=== PATIENT | male | born 1995 | race Caucasian/White ===

== ENCOUNTER 2019-09-18 17:54 | Emergency (ER) | payer OTHER ==
[~2019-09-18] VITALS: Ht 167.6 cm; Wt 77.1 kg
[2019-09-18 20:15] VITALS: BP 122/70
== END 2019-09-18 20:15 | disposition home or self-care (01) ==
LOC: ER 17:54
DX: R21 Rash and other nonspecific skin eruption (principal); F17.210 Nicotine dependence, cigarettes, uncomplicated